=== PATIENT | male | born 1965 | race Caucasian/White ===

== ENCOUNTER 2023-06-12 08:12 | Emergency (ER) | payer BC ==
[~2023-06-12] VITALS: Ht 160 cm; Wt 63.5 kg
[~2023-06-12 08:12] MED LIST: Flomax0.4 MG PO; HYDMOR2 PO; KETO10 PO; NAPR500 PO; OXYACE5T PO; PROM25 PO; Percocet 5-3251 EACH PO; TAMS.4ER PO; Zofran8 MG PO
[2023-06-12 08:30] VITALS: BP 157/95
== END 2023-06-12 09:41 | disposition home or self-care (01) ==
LOC: ER 08:12
DX: J98.8 Other specified respiratory disorders (principal); B97.89 Other viral agents as the cause of diseases classified elsewhere; Z11.52 Encounter for screening for COVID-19
CPT/HCPCS: 71046; 99284-25